=== PATIENT | female | born 2000 | race Caucasian/White ===

== ENCOUNTER 2019-03-27 03:20 | Emergency (ER) | payer OTHER ==
[2019-03-27 03:29] VITALS: BP 134/78; PULSE 96; TEMP 98.3; BMI 23.5
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
== END 2019-03-27 04:39 | disposition home or self-care (01) ==
LOC: FER 03:20
PROC: 0HQFXZZ Repair Right Hand Skin, External Approach (ICD-10-PCS; principal; 2019-03-27)
DX: S80.211A Abrasion, right knee, initial encounter (principal); S61.411A Laceration without foreign body of right hand, initial encounter; X99.0XXA Assault by sharp glass, initial encounter; Y93.89 Activity, other specified; Y92.59 Other trade areas as the place of occurrence of the external cause
CPT/HCPCS: 99281-25